=== PATIENT | male | born 1970 | race Caucasian/White ===

== ENCOUNTER → 2016-12-08 | Outpatient (CLI) | payer OTHER ==
--- NOTE | 2016-12-08 11:17 | US ---
Limited Right Upper Quadrant Ultrasound INDICATION: Fatty liver. No priors for comparison. TECHNIQUE: Limited right upper quadrant ultrasound is performed. FINDINGS: Echogenic, partially visualized. This is consistent with fatty infiltration. No focal mass. Pancreatic duct is not dilated. Aorta is normal in size, measuring 2.4 cm proximally, 1.9 cm in the mid section, 1.5 cm distally. No aneurysm or dissection. Liver contour is normal. The liver size is 15.2 cm. Liver is echogenic, also consistent with fatty in filtration. No focal mass. No intrahepatic ductal dilatation. Main portal vein is patent. Gallbladder wall measures 2 mm. Common duct measures 3 mm. A sonographic Rojas sign is negative. The re is a 4 mm gallbladder polyp that is adherent to the medial wall, nonmobile. No pericholecystic flu id. Right kidney is normal at 9.6 x 4.6 x 4.4 cm. It is normal in echotexture without hydronephrosis. Cor luan measures 1.2 cm. No ascites or pleural effusion. IMPRESSION: 1. Small 4 mm gallbladder polyp. 2. Fatty infiltration of the liver and pancreas. 3. Otherwise nothing acute in the right upper quadrant.
== END ==
LOC: BMCIMAGING 08:08
PROVIDERS: ATTEND Internal Medicine
DX: K82.4 Cholesterolosis of gallbladder (principal); K76.0 Fatty (change of) liver, not elsewhere classified; Z83.79 Family history of other diseases of the digestive system

== ENCOUNTER → 2017-07-19 | Outpatient (CLI) | payer OTHER | LOC: BMCIMAGING 09:57 | PROVIDERS: ATTEND Nurse Practitioner Adult Health | DX: R07.81 Pleurodynia (principal) ==

== ENCOUNTER → 2018-01-31 | Outpatient (CLI) | payer OTHER | LOC: FIMAGING 08:45 | PROVIDERS: ATTEND Internal Medicine | DX: K76.89 Other specified diseases of liver (principal); K82.4 Cholesterolosis of gallbladder; K76.0 Fatty (change of) liver, not elsewhere classified ==

== ENCOUNTER → 2019-03-11 | Outpatient (CLI) | payer OTHER | LOC: FIMAGING 08:13 | PROVIDERS: ATTEND Internal Medicine | DX: K76.89 Other specified diseases of liver (principal); K82.4 Cholesterolosis of gallbladder ==